=== PATIENT | male | born 1995 | race Caucasian/White ===

== ENCOUNTER 2018-01-18 15:18 | Emergency (ER) | payer OTHER ==
[~2018-01-18] VITALS: Ht 180.3 cm; Wt 65.0 kg
[2018-01-18] MEDS ORDERED: fentaNYL/PF 50MCG/1 ML 2ML syringe IV ONE (15:45)
[2018-01-18] MEDS ORDERED: ondansetron/PF 4mg/2ml inj IV ONE (15:45)
[2018-01-18] MEDS ORDERED: normal saline 1000ML IV soln IVB ONE (15:45)
[2018-01-18] MEDS ORDERED: BUPIVAcaine/PF 2.5 mg/ml (0.25%) 30ml vial IJ ONE (15:45)
[2018-01-18] MEDS ORDERED: ketamine 50 mg/ml 10ml vial IV ONE (15:55)
[2018-01-18] MEDS ORDERED: HYDR-3965 PO (16:53)
[2018-01-18] MEDS ORDERED: ONDA4TAB12 PO (16:57)
[2018-01-18 18:09] VITALS: BP 137/74
== END 2018-01-18 18:09 | disposition home or self-care (01) ==
LOC: ER 15:19
DX: S52.532A Colles' fracture of left radius, initial encounter for closed fracture (principal); Z79.899 Other long term (current) drug therapy; V00.311A Fall from snowboard, initial encounter; Y93.23 Activity, snow (alpine) (downhill) skiing, snowboarding, sledding, tobogganing and snow tubing; Y92.89 Other specified places as the place of occurrence of the external cause; Y99.8 Other external cause status
CPT/HCPCS: 25605; 73100; 96374; 96375; 99152; 99285; J2405; J3010; J3490; J7030; 29105

== ENCOUNTER 2018-01-23 08:25 | Outpatient (CLI) | payer OTHER ==
[~2018-01-23] VITALS: Ht 180.3 cm; Wt 67.2 kg
[2018-01-23 08:25] VITALS: BP 133/76
[~2018-01-23 08:25] MED LIST: HYDR-3965 PO; ONDA4TAB12 PO
== END 2018-01-23 09:30 | disposition home or self-care (01) ==
LOC: ORTHO 08:25
PROVIDERS: ATTEND Nurse Practitioner Family
DX: S52.502A Unspecified fracture of the lower end of left radius, initial encounter for closed fracture (principal); F12.90 Cannabis use, unspecified, uncomplicated; X58.XXXA Exposure to other specified factors, initial encounter; Y93.23 Activity, snow (alpine) (downhill) skiing, snowboarding, sledding, tobogganing and snow tubing; Y92.89 Other specified places as the place of occurrence of the external cause; Y99.8 Other external cause status
CPT/HCPCS: 73100; 99215

== ENCOUNTER 2018-02-05 14:33 | Outpatient (CLI) | payer OTHER | END 2018-02-05 15:05 | disposition home or self-care (01) | LOC: ORTHO 14:33 | PROVIDERS: ATTEND Nurse Practitioner Family | DX: S52.502D Unspecified fracture of the lower end of left radius, subsequent encounter for closed fracture with routine healing (principal); X58.XXXD Exposure to other specified factors, subsequent encounter | CPT/HCPCS: 73100; 99213 ==

== ENCOUNTER 2018-02-11 11:34 | Outpatient (CLI) | payer OTHER | END 2018-02-11 12:30 | disposition home or self-care (01) | LOC: ORTHO 11:34 | PROVIDERS: ATTEND Nurse Practitioner Family | DX: Z01.818 Encounter for other preprocedural examination (principal); S52.502G Unspecified fracture of the lower end of left radius, subsequent encounter for closed fracture with delayed healing; X58.XXXD Exposure to other specified factors, subsequent encounter | CPT/HCPCS: 29105; 73110; 99213 ==

== ENCOUNTER 2018-03-04 13:06 | Outpatient (CLI) | payer OTHER ==
[~2018-03-04 13:06] MED LIST changes: -HYDR-3965 PO
== END 2018-03-04 13:47 | disposition home or self-care (01) ==
LOC: ORTHO 13:06
PROVIDERS: ATTEND Nurse Practitioner Family
DX: S52.502D Unspecified fracture of the lower end of left radius, subsequent encounter for closed fracture with routine healing (principal); X58.XXXD Exposure to other specified factors, subsequent encounter
CPT/HCPCS: 29125; 73110; A4590

== ENCOUNTER 2018-04-16 14:39 | Outpatient (CLI) | payer OTHER | END 2018-04-16 15:08 | disposition home or self-care (01) | LOC: ORTHO 14:39 | PROVIDERS: ATTEND Nurse Practitioner Family | DX: S52.502G Unspecified fracture of the lower end of left radius, subsequent encounter for closed fracture with delayed healing (principal); X58.XXXD Exposure to other specified factors, subsequent encounter | CPT/HCPCS: 73110; 99213 ==

== ENCOUNTER 2018-05-14 15:42 | Outpatient (CLI) | payer OTHER | END 2018-05-14 16:03 | disposition home or self-care (01) | LOC: ORTHO 15:42 | PROVIDERS: ATTEND Nurse Practitioner Family | DX: S52.502D Unspecified fracture of the lower end of left radius, subsequent encounter for closed fracture with routine healing (principal); S52.612K Displaced fracture of left ulna styloid process, subsequent encounter for closed fracture with nonunion; X58.XXXD Exposure to other specified factors, subsequent encounter | CPT/HCPCS: 73110; 99213 ==

== ENCOUNTER 2020-11-27 14:00 | Emergency (ER) | payer OTHER ==
[~2020-11-27] VITALS: Ht 180.3 cm; Wt 63.6 kg
[2020-11-27 14:02] VITALS: BP 141/66
[2020-11-27] MEDS ORDERED: TETanus/Pertussis (Acell)/Diphther VAC/PF (Tdap-Adult) 0.5ml syringe IMVAC ONE (14:50)
[2020-11-27] MEDS ORDERED: LIDOcaine 1% W/epiNEPHrine 1:200,000 10ml vial IJ ONE (14:50)
[2020-11-27] MEDS ORDERED: CEPH250T PO (15:59)
== END 2020-11-27 16:22 | disposition home or self-care (01) ==
LOC: ER 14:00
DX: S92.424A Nondisplaced fracture of distal phalanx of right great toe, initial encounter for closed fracture (principal); Z79.2 Long term (current) use of antibiotics; Z79.899 Other long term (current) drug therapy; Z87.81 Personal history of (healed) traumatic fracture; Z72.89 Other problems related to lifestyle; W22.8XXA Striking against or struck by other objects, initial encounter; Y93.89 Activity, other specified; Y92.89 Other specified places as the place of occurrence of the external cause; Y99.0 Civilian activity done for income or pay
CPT/HCPCS: 73660; 99283

== ENCOUNTER 2022-07-24 15:52 | Outpatient (CLI) | payer BC | END 2022-07-24 23:59 | disposition home or self-care (01) | LOC: RAD 15:52 | PROVIDERS: ATTEND Orthopaedic Surgery | DX: M22.12 Recurrent subluxation of patella, left knee (principal); M23.42 Loose body in knee, left knee; M25.562 Pain in left knee; M25.862 Other specified joint disorders, left knee | CPT/HCPCS: 73721 ==

== ENCOUNTER 2022-10-18 08:21 | Day surgery (SDC) | payer BC ==
[~2022-10-18] VITALS: Ht 180.3 cm; Wt 59.9 kg
[2022-10-18] VITALS (8 sets, daily range): BP systolic 119–144; BP diastolic 76–91
[~2022-10-18 08:21] MED LIST changes: +LIDOcaine 1% (10mg/ml) 2ml vial SQ ONE; +NO HOME MEDS; -ONDA4TAB12 PO; +ceFAZolin inj. 2,000 MG in dextrose 5%-water 100 ML IV ONE; +famotidine 20mg tablet PO ONE; +ringers solution, lacted 1,000 ML IV SCH
[2022-10-18] MEDS ORDERED: LIDOcaine 1% 30ml preserv. free vial ONE (08:54)
[2022-10-18] MEDS ORDERED: triamcinolone acetonide 40mg/ml inj ONE (08:54)
[2022-10-18] MEDS ORDERED: ROPIVAcaine 0.5% (5mg/ml) 30ml vial ONE (08:54)
[2022-10-18] MEDS ORDERED: midazolam 1 mg/ML 2ml injection ONE (09:37)
[2022-10-18] MEDS ORDERED: fentaNYL /PF 50mcg/ml 5ml ampule ONE (09:37)
[2022-10-18] MEDS ORDERED: propofol inj 20 ML IV ONE (09:38)
[2022-10-18] MEDS ORDERED: dexamethasone sod phosphate 10mg/ml inj ONE (09:39)
[2022-10-18] MEDS ORDERED: ondansetron/PF 4mg/2ml inj ONE (09:39)
[2022-10-18] MEDS ORDERED: sevoflurane 250ml liquid IH ONE (09:39)
[2022-10-18] MEDS ORDERED: meperidine/PF 25mg/ml syringe IV PRN ×3 (09:40)
[2022-10-18] MEDS ORDERED: proCHLORperazine 10 MG/2 ml inj IV PRN (09:40)
[2022-10-18] MEDS ORDERED: morphine 2 MG/ML inj. syringe IV PRN (09:40)
[2022-10-18] MEDS ORDERED: ondansetron/PF 4mg/2ml inj IV PRN (09:40)
[2022-10-18] MEDS ORDERED: morphine 4 MG/ML inj SYRINge IV PRN (09:40)
[2022-10-18] MEDS ORDERED: ringers solution, lacted 1,000 ML IV SCH (09:40)
--- NOTE | 2022-10-18 10:30 | NUR ---
Received from OR via [facility], accompanied by Anesthesiologist and report given by SRAVAN Anesthesiologist. PATIENT WAKING UP, DENIES PAIN, V/S WNL, SCD ON, 20G TO RIGHT WRIST, drsg to LEFT KNEE C/D/I with ICE PACK. Addendum: 10/18/22 at 1111 by Juan F Polanco RN Amended: Links added.
--- NOTE | 2022-10-18 11:25 | NUR ---
ALL DISCHARGE CRITERIA HAS BEEN MET. VSS, PAIN AT A TOLERABLE LEVEL, ABLE TO SAFELY AMBULATE AND TRANSFER SELF. IV TAKEN OUT WITHOUT ANY COMPLICATIONS. ALL DISCHARGE INSTRUCTIONS COVERED WITH PATIENT AND ALL QUESTIONS ANSWERED. PATIENT TAKEN OUT VIA WHEELCHAIR WITH ALL BELONGINGS TO PERSONAL VEHICLE WHERE FAMILY DROVE PATIENT HOME. Addendum: 10/18/22 at 1139 by Juan F Polanco RN Amended: Links added.
== END 2022-10-18 11:25 | disposition home or self-care (01) ==
LOC: PAS 08:21
PROVIDERS: ATTEND Orthopaedic Surgery
DX: M22.42 Chondromalacia patellae, left knee (principal); M23.42 Loose body in knee, left knee; F12.90 Cannabis use, unspecified, uncomplicated; S83.005A Unspecified dislocation of left patella, initial encounter; X58.XXXA Exposure to other specified factors, initial encounter; Y93.89 Activity, other specified; Y92.89 Other specified places as the place of occurrence of the external cause; Y99.8 Other external cause status; Z79.899 Other long term (current) drug therapy
CPT/HCPCS: 29874; 82948; J0690; J1100; J2250; J2405; J2704; J2795; J3010; J3301; J3490; J7060; J7120; Z7506; Z7512; A4215; A4618; A6449; A7000

== ENCOUNTER 2023-10-06 19:51 | Emergency (ER) | payer BC ==
[~2023-10-06] VITALS: Ht 180.3 cm; Wt 67.2 kg
[~2023-10-06 19:51] MED LIST changes: -LIDOcaine 1% (10mg/ml) 2ml vial SQ ONE; -ceFAZolin inj. 2,000 MG in dextrose 5%-water 100 ML IV ONE; -famotidine 20mg tablet PO ONE; -ringers solution, lacted 1,000 ML IV SCH
[2023-10-06 20:53] LABS: BILIRUBIN,URINE NEGATIVE (Neg); CLARITY,URINE SLIGHTLY CLOUDY (Clear); COLOR,URINE YELLOW (Yellow); GLUCOSE, URINE NEGATIVE (Neg); KETONES,URINE TRACE mg/dl (Neg); LEUKOCYTE ESTERASE ,URINE NEGATIVE (Neg); NITRITES, URINE NEGATIVE (Neg); OCCULT BLOOD,URINE NEGATIVE (Neg); PROTEIN,URINE 30 mg/dl (Neg)
[2023-10-06] MEDS ORDERED: normal saline 1000ml 1,000 ML IV ONE (21:05)
[2023-10-06] MEDS ORDERED: ondansetron/PF 4mg/2ml inj IV ONE (21:05)
[2023-10-06 21:10] VITALS: BP 126/88; PULSE 85; RESP 15; TEMP 98.3; O2SAT 97
[2023-10-06 21:22] LABS: UA COLLECTION TYPE CLN CATCH MIDSTREAM
[2023-10-06 21:24] LABS: BACTERIA,URINE FEW /HPF (Neg); RBC,URINE 0-2 /HPF (0-2); SQUAMOUS EPITHELIAL CELL,UR FEW /LPF (FEW); WBC,URINE 0-4 /HPF (0-4)
[2023-10-06 21:25] LABS: AMORPHOUS URATES 1+
[2023-10-06 21:25] LABS: EOSINOPHILS # (AUTO) 0.1 X10'3 (0-0.9); MEAN PLATELET VOLUME 8.8 FL (7.4-10.4); WHITE BLOOD COUNT 4.9 X10'3 (4.5-11.0)
[2023-10-06 21:27] LABS: BASOPHILS % (AUTO) 0.3 % (0-1); EOSINOPHILS % (AUTO) 1.4 % (0-6); HEMATOCRIT 49.5 % (42.0-52.0); HEMOGLOBIN 16.9 g/dl (14.0-17.9); LYMPHOCYTES % (AUTO) 19.9 % (21-51); MEAN CORPUSCULAR HEMOGLOBIN 29.9 PG (27.0-31.0); MEAN CORPUSCULAR HGB CONC 34.2 g/dL (33.0-36.5); MEAN CORPUSCULAR VOLUME 87.4 FL (78-98); MONOCYTES # (AUTO) 0.9 X10'3 (0-0.9); MONOCYTES % (AUTO) 18.4 % (2-12); NEUTROPHILS # (AUTO) 2.9 X10'3 (1.8-7.7); PLATELET COUNT 217 X10'3 (140-440); RED BLOOD COUNT 5.66 X10'6 (4.70-6.10); RED CELL DISTRIBUTION WIDTH 13.1 % (11.5-14.5)
[2023-10-06 21:33] LABS: ALANINE AMINOTRANSFERASE 18 U/L (12-78); ALBUMIN 3.9 G/DL (3.4-5.0); ALBUMIN/GLOBULIN RATIO 0.9 (1.1-1.5); ALKALINE PHOSPHATASE 76 IU/L (46-116); ANION GAP 11 (8-16); ASPARTATE AMINO TRANSFERASE 20 U/L (10-37); BILIRUBIN,TOTAL 0.7 MG/DL (0.1-1.0); BLOOD UREA NITROGEN 13 MG/DL (7-18); BUN/CREATININE RATIO 12.5 (10.0-20.0); CHLORIDE 96 MMOL/L (99-107); CREATININE 1.04 MG/DL (0.60-1.10); GLUCOSE 109 MG/DL (70-104); LIPASE 27 U/L (16-77); POTASSIUM 3.3 MMOL/L (3.5-5.1); SODIUM 135 MMOL/L (135-145); TOTAL CARBON DIOXIDE 28.1 MMOL/L (24-32); TOTAL PROTEIN 8.2 G/DL (6.4-8.2); eCRCL 103 ML/MIN; eGFR 87 ML/MIN
[2023-10-06] MEDS ORDERED: potassium Cl 20 mEq SR tablet PO ONE (21:40)
[2023-10-06] MEDS ORDERED: ONDA4TAB12 PO (22:06)
== END 2023-10-06 23:58 | disposition home or self-care (01) ==
LOC: ER 19:52
DX: K52.89 Other specified noninfective gastroenteritis and colitis (principal)
CPT/HCPCS: 80053; 81001; 83690; 85025; 96361; 96374; 99283; J2405; J7030; 96375

== ENCOUNTER 2025-04-21 16:21 | Emergency (ER) | payer SELFPAY ==
[~2025-04-21] VITALS: Ht 180.3 cm; Wt 70.5 kg
[~2025-04-21 16:21] MED LIST changes: +ONDA-243 PO
[2025-04-21 16:24] VITALS: BP 138/93; PULSE 84; TEMP 99.1; O2SAT 97
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
[2025-04-21] MEDS ORDERED: CYCL-1 PO (17:50)
[2025-04-21] MEDS ORDERED: LIDO700A47 TOP (17:50)
[2025-04-21] MEDS ORDERED: IBUP-864 PO (17:50)
[2025-04-21 18:09] VITALS: RESP 16
[2025-04-21] MEDS: ketorolac trometh 15mg/ml vial 15 MG/ML ML IM ONE (18:09)
[2025-04-21] MEDS: cyclobenzaprine 10mg tablet PO ONE (18:09)
[2025-04-21] MEDS: LIDOcaine 5% patch TP STA (18:12)
--- NOTE | 2025-04-21 19:29 | RADIOLOGY REPORT ---
EXAM: MR MRI LUMBAR SPINE CLINICAL HISTORY: Lumbar pain COMPARISON: None TECHNIQUE: MRI imaging of the lumbar was performed on a MRI imaging system without intravenous contrast. FINDINGS: For the purposes of this examination, the last well-formed intervertebral disc space will be designat ed as L5-S1. By this convention, the conus medullaris terminates at the L1 level. Alignment: Minimal retrolisthesis at L5-S1, otherwise normal alignment. Vertebrae: Normal. Vertebral Marrow: Normal. Epidural Space: Normal. Spinal Cord: Normal. Cauda Equina Roots: Normal. At the T12-L1 level, no significant stenosis. At the L1-L2 level, no significant stenosis. At the L2-L3 level, no significant stenosis. At the L3-L4 level, no significant stenosis. At the L4-L5 level, mild disc desiccation diffuse disc bulge, mild facet hypertrophy resulting in min or spinal stenosis and [id number] bilateral neural foraminal stenosis. At the L5-S1 level, note is made of a posterior annular fissure at L5-S1. There is a left paracentral disc extrusion at L5-S1. Facet hypertrophy. [id number] bilateral neural foraminal stenosis, mo derate left lateral recess stenosis, minor spinal stenosis. The posterior paraspinal soft tissues are intact. No acute abnormality in the visualized abdomen and retroperitoneum. IMPRESSION: 1. Posterior annular fissure at L5-S1 which could be a source of low back pain depending on acuity. 2. Left paracentral disc extrusion at L5-S1 contributing to moderate left lateral recess stenosis. 3. Degenerative change of L4-L5 and L5-S1 resulting in [id number] degenerative neural foraminal stenosis and minor spinal stenosis at these levels.
== END 2025-04-21 18:17 | disposition home or self-care (01) ==
LOC: ER 16:22
DX: S29.012A Strain of muscle and tendon of back wall of thorax, initial encounter (principal); V49.9XXA Car occupant (driver) (passenger) injured in unspecified traffic accident, initial encounter; Y93.89 Activity, other specified; Y92.89 Other specified places as the place of occurrence of the external cause; Y99.8 Other external cause status
CPT/HCPCS: 72148; 96372; 99285; J1885